=== PATIENT | female | born 1955 | race African-American/Black ===

== ENCOUNTER → 2020-03-17 | Outpatient (CLI) | payer OTHER, MEDICAID ==
[~2020-03-17] MED LIST: AMLO5TAB88 PO; ATOR10TA69 PO; CLOP75TA33 PO; ERTU15TA PO; GABA-533 PO; INSU100I24 SQ; LOSA50TA41 PO; METF-414 PO; SERT50TA12 PO
== END | disposition home or self-care (01) ==
LOC: LAB 14:03
PROVIDERS: ATTEND Neurological Surgery
DX: Z01.818 Encounter for other preprocedural examination (principal); Z11.59 Encounter for screening for other viral diseases
CPT/HCPCS: C9803; U0003

== ENCOUNTER 2020-03-19 05:19 | Inpatient (IN) | payer MEDICAID ==
[2020-03-19] VITALS (65 sets, daily range): BP systolic 1–155; BP diastolic 0–76
[~2020-03-19] VITALS: Ht 167.6 cm; Wt 76.9 kg
[~2020-03-19 05:19] MED LIST changes: -AMLO5TAB88 PO; -ATOR10TA69 PO; -CLOP75TA33 PO; -ERTU15TA PO; -GABA-533 PO; -INSU100I24 SQ; -LOSA50TA41 PO; -METF-414 PO; -SERT50TA12 PO; +SODIUM CHLORIDE 0.9% 1,000 ML IV SCH
[2020-03-19] MEDS ORDERED: THROMBIN (BOVINE) 5000 UNITS/VIAL TOP ONE (06:17)
[2020-03-19] MEDS ORDERED: NORMAL SALINE 0.9% 10 ML SYR ONE (06:18)
[2020-03-19] MEDS ORDERED: BACITRACIN 50,000 UNITS/VIAL ONE (06:18)
[2020-03-19] MEDS ORDERED: LIDOCAINE HCL/EPINEPHRINE 1%-EPI 1:100,000 20 ML VIAL ONE (06:18)
[2020-03-19] MEDS ORDERED: FENTANYL CITRATE/PF 50MCG/ML 2ML VIAL ONE (06:58)
[2020-03-19] MEDS ORDERED: PROPOFOL 200MG/20ML VIAL IV ONE ×2 (06:58→08:41)
[2020-03-19] MEDS ORDERED: MIDAZOLAM HCL 2 MG/2 ML VIAL ONE (06:58)
[2020-03-19] MEDS ORDERED: METOCLOPRAMIDE HCL 10MG/2ML VIAL ONE (07:17)
[2020-03-19] MEDS ORDERED: LIDOCAINE HCL/PF 1% 10 MG/ML 5ML VIAL ONE (07:17)
[2020-03-19] MEDS ORDERED: ONDANSETRON HCL 4MG/2ML INJ ONE (07:17)
[2020-03-19] MEDS ORDERED: SUCCINYLCHOLINE CHLORIDE 200MG/10ML IV ONE (07:17)
[2020-03-19] MEDS: DEXT 5%/LACTATED RINGERS 1,000 ML IV SCH ×2 (09:19→20:08)
[2020-03-19] MEDS: NICARDIPINE 100 MG in SODIUM CHLORIDE 0.9% 60 ML IV PRN (09:20)
[2020-03-19] MEDS ORDERED: HYDRALAZINE 20MG/ML VIAL IV NR (09:30)
[2020-03-19] MEDS ORDERED: NALOXONE INJ IV PRN (09:30)
[2020-03-19] MEDS ORDERED: DIPHENHYDRAMINE INJ IV PRN (09:30)
[2020-03-19] MEDS ORDERED: HYDROMORPHONE PCA 10MG/50ML IV PRN (09:30)
[2020-03-19] MEDS ORDERED: ONDANSETRON INJ IV PRN (09:30)
[2020-03-19] MEDS ORDERED: MEPERIDINE HCL/PF 25MG/ML CPJ IV PRN (09:30)
[2020-03-19] MEDS ORDERED: INSU100I24 SQ (10:06)
[2020-03-19] MEDS ORDERED: METF-414 PO (10:06)
[2020-03-19] MEDS ORDERED: LOSA50TA41 PO (10:06)
[2020-03-19] MEDS ORDERED: AMLO5TAB88 PO (10:06)
[2020-03-19] MEDS ORDERED: CLOP75TA33 PO (10:06)
[2020-03-19] MEDS: DEXAMETHASONE 4MG/ML 1ML VIAL IV SCH ×2 (12:38→18:44)
[2020-03-19] MEDS: MORPHINE SULFATE 4 MG/ML CPJ (NOT FOR IM USE) IV PRN (12:42)
[2020-03-19] MEDS ORDERED: CEFAZOLIN SODIUM 1000MG/VIAL IV SCH (14:00)
[2020-03-19] MEDS ORDERED: PNEUMOCOCCAL 23-VAL P-SAC VAC 0.5 ML IM ONE (14:15)
[2020-03-19] MEDS: CEFAZOLIN 1000MG PREMIX 50 ML IV SCH ×2 (14:21→21:47)
[2020-03-19 20:41] LABS: HEMATOCRIT. 39.2 % (36.0-48.0); MEAN CORPUSCULAR VOLUME 96.4 fL (81.0-99.0); MEAN PLATELET VOLUME 8.6 fl (7.4-10.4); PLATELET 330 x1000/uL (130-400); RED BLOOD CELL COUNT 4.07 mill/uL (4.2-5.4); RED CELL DISTRIBUTION WIDTH 14.7 % (11.6-14.6)
[2020-03-19 20:45] LABS: CHLORIDE 108 mEq/L (98-107)
[2020-03-19 21:38] LABS: PLATELET ESTIMATE NORMAL
[2020-03-20] VITALS (94 sets, daily range): BP systolic 72–158; BP diastolic 38–102
[2020-03-20] MEDS: DEXAMETHASONE 4MG/ML 1ML VIAL IV SCH ×3 (00:16→11:56)
[2020-03-20] MEDS: NICARDIPINE 100 MG in SODIUM CHLORIDE 0.9% 60 ML IV PRN ×3 (00:16→20:20)
[2020-03-20] MEDS: MORPHINE SULFATE 4 MG/ML CPJ (NOT FOR IM USE) IV PRN ×2 (04:51→12:00)
[2020-03-20] MEDS: CEFAZOLIN 1000MG PREMIX 50 ML IV SCH ×2 (04:59→14:26)
[2020-03-20 05:55] LABS: HEMATOCRIT. 39.5 % (36.0-48.0); HEMOGLOBIN. 13.4 g/dL (12.0-16.0); MEAN CORPUSCULAR HEMOGLOBIN 32.3 pg (28.0-32.0); MEAN CORPUSCULAR VOLUME 95.3 fL (81.0-99.0); MEAN PLATELET VOLUME 8.9 fl (7.4-10.4); PLATELET 360 x1000/uL (130-400); RED BLOOD CELL COUNT 4.14 mill/uL (4.2-5.4); RED CELL DISTRIBUTION WIDTH 14.4 % (11.6-14.6)
[2020-03-20 06:14] LABS: CHLORIDE 106 mEq/L (98-107)
[2020-03-20] MEDS ORDERED: ATOR10TA69 PO (07:09)
[2020-03-20] MEDS ORDERED: ERTU15TA PO (07:09)
[2020-03-20] MEDS ORDERED: SERT50TA12 PO (07:09)
[2020-03-20] MEDS ORDERED: GABA-533 PO (07:09)
[2020-03-20] MEDS ORDERED: DEXTROSE 50% WATER 50ML SYRINGE IV PRN (07:30)
[2020-03-20] MEDS: DEXT 5%/LACTATED RINGERS 1,000 ML IV SCH ×2 (08:02→14:27)
[2020-03-20] MEDS: BLOOD SUGAR DIAGNOSTIC STRIP TEST SCH ×4 (08:26→21:00)
[2020-03-20] MEDS: INSULIN LISPRO 100 UNITS/ML SUBCUT SCH ×4 (08:28→21:21)
[2020-03-20 11:58] LABS: PLATELET ESTIMATE NORMAL
[2020-03-20] MEDS: AMLODIPINE 5MG TABLET PO SCH ×2 (12:35→21:07)
[2020-03-20] MEDS: LOSARTAN POTASSIUM 50 MG TABLET PO SCH (12:36)
[2020-03-20] MEDS: SERTRALINE HCL 50MG TABLET PO SCH (14:26)
[2020-03-20] MEDS: ATORVASTATIN CALCIUM 10MG TABLET PO SCH (21:05)
[2020-03-20] MEDS ORDERED: INSULIN GLARGINE UD 100 UNITS/ML SYR SUBCUT SCH (22:00)
[2020-03-21] VITALS (55 sets, daily range): BP systolic 106–154; BP diastolic 44–92
[2020-03-21] MEDS ORDERED: HYDRALAZINE 20MG/ML VIAL IV PRN (02:15)
[2020-03-21] MEDS: NICARDIPINE 100 MG in SODIUM CHLORIDE 0.9% 60 ML IV PRN (04:27)
[2020-03-21] MEDS: BLOOD SUGAR DIAGNOSTIC STRIP TEST SCH ×4 (06:17→20:48)
[2020-03-21] MEDS: INSULIN LISPRO 100 UNITS/ML SUBCUT SCH ×4 (06:24→21:18)
[2020-03-21 06:47] LABS: HEMATOCRIT. 39.6 % (36.0-48.0); HEMOGLOBIN. 13.3 g/dL (12.0-16.0); MEAN PLATELET VOLUME 8.8 fl (7.4-10.4); PLATELET 370 x1000/uL (130-400); RED BLOOD CELL COUNT 4.17 mill/uL (4.2-5.4); RED CELL DISTRIBUTION WIDTH 14.6 % (11.6-14.6)
[2020-03-21 07:55] LABS: CHLORIDE 104 mEq/L (98-107)
[2020-03-21] MEDS: SERTRALINE HCL 50MG TABLET PO SCH (08:30)
[2020-03-21] MEDS: AMLODIPINE 5MG TABLET PO SCH ×2 (08:30→20:58)
[2020-03-21] MEDS: LOSARTAN POTASSIUM 50 MG TABLET PO SCH (08:30)
[2020-03-21] MEDS ORDERED: CLONIDINE 0.1MG TABLET PO PRN (11:45)
[2020-03-21] MEDS ORDERED: PHENOL/SODIUM PHENOLATE 1.4% SRPAY 177ML MM PRN (11:45)
[2020-03-21] MEDS ORDERED: LOSARTAN POTASSIUM 50 MG TABLET PO NR (12:00)
[2020-03-21] MEDS ORDERED: INSULIN GLARGINE UD 100 UNITS/ML SYR SUBCUT NR (12:30)
[2020-03-21] MEDS: ATORVASTATIN CALCIUM 10MG TABLET PO SCH (20:58)
[2020-03-21] MEDS: INSULIN GLARGINE UD 100 UNITS/ML SYR SUBCUT SCH (21:18)
[2020-03-21 21:23] LABS: PLATELET ESTIMATE NORMAL
[2020-03-22] VITALS: BP 124/58
[2020-03-22 04:00] VITALS: BP 144/74
[2020-03-22] MEDS: INSULIN LISPRO 100 UNITS/ML SUBCUT SCH (07:13)
[2020-03-22] MEDS: BLOOD SUGAR DIAGNOSTIC STRIP TEST SCH (07:13)
[2020-03-22 08:00] VITALS: BP 147/76
[2020-03-22] MEDS: SERTRALINE HCL 50MG TABLET PO SCH (08:20)
[2020-03-22] MEDS: AMLODIPINE 5MG TABLET PO SCH (08:20)
[2020-03-22] MEDS ORDERED: LOSARTAN POTASSIUM 100 MG TABLET PO SCH (09:00)
[2020-03-22] MEDS: INSULIN GLARGINE UD 100 UNITS/ML SYR SUBCUT SCH (10:37)
[2020-03-22] MEDS ORDERED: LOSA50TA41 PO (11:15)
[2020-03-22 11:31] VITALS: BP 132/72
== END 2020-03-22 12:19 | disposition home or self-care (01) | DRG 321 ==
LOC: OR 05:19 → 5EST 05:20 → 6EST 03-21 14:00
PROVIDERS: ADMIT Internal Medicine; ATTEND Internal Medicine
PROC: 0RG20A0 Fusion of 2 or more Cervical Vertebral Joints with Interbody Fusion Device, Anterior Approach, Anterior Column, Open Approach (ICD-10-PCS; principal; 2020-03-19)
PROC: 0RB30ZZ Excision of Cervical Vertebral Disc, Open Approach (ICD-10-PCS; 2020-03-19)
DX: M48.02 Spinal stenosis, cervical region (principal); G82.50 Quadriplegia, unspecified; M47.12 Other spondylosis with myelopathy, cervical region; E11.9 Type 2 diabetes mellitus without complications; I10 Essential (primary) hypertension; E78.5 Hyperlipidemia, unspecified; F17.210 Nicotine dependence, cigarettes, uncomplicated; Z98.1 Arthrodesis status; Z79.84 Long term (current) use of oral hypoglycemic drugs; Z79.899 Other long term (current) drug therapy
CPT/HCPCS: 36415; 72040; 72141; 76000; 80048; 82962; 83036; 85025; 86850; 86900; 88304; 88311; 93005; 95863; 95925; 95926; 95928; 95929; 95940; 97116; 97162; 97166; 97530; 97535; C1713; J0330; J0690; J1100; J1170; J1815; J2250; J2270; J2405; J2704; J2765; J3010; J3490; J7050; J7121; L0172

== ENCOUNTER → 2021-05-06 | Day surgery (SDC) | payer MEDICARE, MEDICAID ==
[~2021-05-06] MED LIST changes: +AMLO5TAB88 PO; +ATOR10TA69 PO; +CLOP75TA4 PO; +ERTU15TA PO; +FENTANYL CITRATE/PF 50MCG/ML 2ML VIAL ONE; +FENTANYL CITRATE/PF 50MCG/ML 5ML VIAL ONE; +GABA-533 PO; +HEPARIN SODIUM 1,000 UNIT/1ML VIAL IV ONE; +INSU100I24 SQ; +IODIXANOL 320MG/ML 100 ML BOTTLE IV ONE; +LIDOCAINE HCL 1% 20ML VIAL (Pyxis) INJ ONE; +LOSA50TA41 PO; +METF-414 PO; +MIDAZOLAM HCL 2 MG/2 ML VIAL ONE; +MIDAZOLAM HCL 5 MG/5 ML VIAL ONE; +NICARDIPINE 100MCG/ML 10ML VIAL (CATH LAB) IV ONE; +NITROGLYCERIN 50MCG/ML 10ML VIAL (CATH LAB) IV ONE; +SERT50TA12 PO; -SODIUM CHLORIDE 0.9% 1,000 ML IV SCH
== END | disposition home or self-care (01) ==
LOC: CCL 08:36
PROVIDERS: ATTEND Specialist
DX: R07.9 Chest pain, unspecified (principal); I25.10 Atherosclerotic heart disease of native coronary artery without angina pectoris; E11.9 Type 2 diabetes mellitus without complications; I11.9 Hypertensive heart disease without heart failure; I25.2 Old myocardial infarction; E78.5 Hyperlipidemia, unspecified; F17.210 Nicotine dependence, cigarettes, uncomplicated; Z79.84 Long term (current) use of oral hypoglycemic drugs; Z79.899 Other long term (current) drug therapy; Z86.73 Personal history of transient ischemic attack (TIA), and cerebral infarction without residual deficits; Z98.890 Other specified postprocedural states; Z82.49 Family history of ischemic heart disease and other diseases of the circulatory system; Z83.3 Family history of diabetes mellitus
CPT/HCPCS: 93005; 93458; C1769; C1887; C1893; J1644; J2250; J3010; J3490; Q9967